=== PATIENT | female | born 1960 | race Hispanic/Latino ===

== ENCOUNTER 2016-12-16 01:26 | Emergency (ER) | payer OTHER, SELFPAY ==
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
[2016-12-16] MEDS ORDERED: HYDROmorphone HCL INJ 2 MG/ML VIAL IV ONE ×2 (02:31→08:25)
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
[2016-12-16] MEDS ORDERED: HYDROmorphone HCL INJ 2 MG/ML VIAL IV SCH (03:30)
[2016-12-16] MEDS ORDERED: fentaNYL PATCH 25 MCG/HR 1 EA PATCH TD ONE (03:32)
[2016-12-16] MEDS ORDERED: ONDANSETRON INJ 4 MG/2 ML VIAL IV ONE (04:00)
[2016-12-16] MEDS ORDERED: PROMETHAZINE HCL INJ 25 MG in SODIUM CHLORIDE 0.9% 50ML 50 ML IVPB ONE (05:20)
[2016-12-16] MEDS ORDERED: PROMETHAZINE HCL INJ 25 MG/ML VIAL ONE (05:22)
[2016-12-16] MEDS ORDERED: SODIUM CHLORIDE 0.9% 50ML 50 ML ONE (05:22)
[2016-12-16 10:18] VITALS: BP 120/97; TEMP 99.9; O2SAT 96
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
== END 2016-12-16 10:40 | disposition home or self-care (01) ==
LOC: ER 01:26
DX: S42.352A Displaced comminuted fracture of shaft of humerus, left arm, initial encounter for closed fracture (principal); S00.03XA Contusion of scalp, initial encounter; I10 Essential (primary) hypertension; Z79.82 Long term (current) use of aspirin; Z79.899 Other long term (current) drug therapy; Z87.891 Personal history of nicotine dependence; V47.6XXA Car passenger injured in collision with fixed or stationary object in traffic accident, initial encounter; Y92.410 Unspecified street and highway as the place of occurrence of the external cause
CPT/HCPCS: 70450; 71010; 72040; 72125; 72170; 73030; 73060; 80053; 80307; 80320; 81001; 85025; 85610; 85730; A4216; J1170; J2405; J2550

== ENCOUNTER → 2016-12-19 | Outpatient (CLI) | payer SELFPAY ==
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
== END | disposition home or self-care (01) ==
LOC: RAD 08:11
PROVIDERS: ATTEND Orthopaedic Surgery
DX: S42.202A Unspecified fracture of upper end of left humerus, initial encounter for closed fracture (principal)

== ENCOUNTER → 2016-12-27 | Outpatient (CLI) | payer SELFPAY ==
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
== END ==
LOC: RAD 08:30
PROVIDERS: ATTEND Orthopaedic Surgery
DX: S42.202A Unspecified fracture of upper end of left humerus, initial encounter for closed fracture (principal)

== ENCOUNTER → 2017-01-03 | Outpatient (CLI) | payer SELFPAY ==
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
== END | disposition home or self-care (01) ==
LOC: RAD 08:53
PROVIDERS: ATTEND Orthopaedic Surgery
DX: S42.202A Unspecified fracture of upper end of left humerus, initial encounter for closed fracture (principal)

== ENCOUNTER → 2017-01-10 | Outpatient (CLI) | payer SELFPAY ==
--- NOTE | 2017-01-10 12:36 | RAD ---
Two-view left humerus. Indication: FX OF LEFT HUMERUS Comparison: January 03, 2017 Impression: Comminuted segmental fracture proximal left humeral shaft redemonstrated with stable fracture malalignment. There is progressed heterotopic ossification about the fracture but without bridging callus formation. Electronically signed by: Eyal Concepcion MD 01/10/2017 12:36 PM UNIFORM ROOM ATTENDANT
== END | disposition home or self-care (01) ==
LOC: RAD 08:31
PROVIDERS: ATTEND Orthopaedic Surgery
DX: S42.202D Unspecified fracture of upper end of left humerus, subsequent encounter for fracture with routine healing (principal)

== ENCOUNTER → 2017-01-28 | Outpatient (CLI) | payer SELFPAY ==
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
== END | disposition home or self-care (01) ==
LOC: RAD 08:50
PROVIDERS: ATTEND Orthopaedic Surgery
DX: S42.202D Unspecified fracture of upper end of left humerus, subsequent encounter for fracture with routine healing (principal)

== ENCOUNTER → 2017-02-11 | Outpatient (CLI) | payer SELFPAY ==
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
== END | disposition home or self-care (01) ==
LOC: RAD 08:57
PROVIDERS: ATTEND Orthopaedic Surgery
DX: S42.302D Unspecified fracture of shaft of humerus, left arm, subsequent encounter for fracture with routine healing (principal)

== ENCOUNTER → 2017-03-04 | Outpatient (CLI) | payer OTHER ==
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
== END | disposition home or self-care (01) ==
LOC: RAD 09:02
PROVIDERS: ATTEND Orthopaedic Surgery
DX: S42.302D Unspecified fracture of shaft of humerus, left arm, subsequent encounter for fracture with routine healing (principal); X58.XXXA Exposure to other specified factors, initial encounter

== ENCOUNTER → 2017-03-25 | Outpatient (CLI) | payer OTHER ==
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
== END | disposition home or self-care (01) ==
LOC: RAD 08:58
PROVIDERS: ATTEND Orthopaedic Surgery
DX: S42.302D Unspecified fracture of shaft of humerus, left arm, subsequent encounter for fracture with routine healing (principal)

== ENCOUNTER → 2017-04-29 | Outpatient (CLI) | payer OTHER ==
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
== END | disposition home or self-care (01) ==
LOC: RAD 09:08
PROVIDERS: ATTEND Orthopaedic Surgery
DX: S42.302D Unspecified fracture of shaft of humerus, left arm, subsequent encounter for fracture with routine healing (principal)

== ENCOUNTER → 2019-11-17 | Outpatient (CLI) | payer BC | LOC: LAB.O 08:02 | PROVIDERS: ATTEND Internal Medicine Interventional Cardiology | DX: I25.10 Atherosclerotic heart disease of native coronary artery without angina pectoris (principal); I10 Essential (primary) hypertension; E78.5 Hyperlipidemia, unspecified ==

== ENCOUNTER → 2020-07-19 | Outpatient (CLI) | payer BC ==
--- NOTE | 2020-07-20 08:25 | RAD ---
EXAM DESCRIPTION: Abdomen 1 View CLINICAL HISTORY: 60 years Female, LEFT UPPER QUADRANT PAIN COMPARISON: May 08, 2015 Findings: One view(s)/radiograph(s) Large stool volume. Nonobstructive bowel gas pattern. Cholelithiasis. No other suspicious calcification. No acute osseous abnormality. IMPRESSION: Nonobstructive bowel gas pattern. Electronically signed by: Robert Thomas MD 07/20/2020 8:24 AM CDT
== END ==
LOC: LAB.O 11:25
PROVIDERS: ATTEND Nurse Practitioner Family
DX: R10.12 Left upper quadrant pain (principal); R53.83 Other fatigue; Z83.3 Family history of diabetes mellitus

== ENCOUNTER 2020-08-02 12:07 | Emergency (ER) | payer BC ==
[2020-08-02] MEDS ORDERED: HYDROcodone 7.5MG/APAP 325MG 1 EA TAB PO ONE (12:42)
[2020-08-02] MEDS ORDERED: KETOROLAC TROMETHAMINE INJ 30 MG/ML VIAL IM ONE (12:42)
[2020-08-02] MEDS ORDERED: PIPERACILLIN/TAZOBACTAM 3.375 GM in SODIUM CHLORIDE 0.9% 100ML 100 ML IVPB ONE (13:54)
[2020-08-02] MEDS ORDERED: cefTRIAXone SODIUM 1 GM in SODIUM CHL 0.9% 50ML MIN-BAG+ 50 ML IVPB ONE (13:58)
[2020-08-02] MEDS ORDERED: metroNIDAZOLE 500 MG TAB PO ONE (13:59)
[2020-08-02] MEDS ORDERED: CIPROFLOXACIN 500 MG TAB PO ONE (13:59)
--- NOTE | 2020-08-02 14:14 | ED.PDOC ---
History of Present Illness - General Chief Complaint: Abdominal Pain Stated Complaint: LEFT LOWER ABD PAIN X SEVERAL DAYS Time Seen by Provider: 08/02/20 12:37 Source: patient Exam Limitations: no limitations - History of Present Illness Initial Comments: The patient is a 60-year-old female presented emergency room secondary to around 2 weeks of left lower quadrant abdominal pain, worsening in the last 3 days. No definite fevers. No nausea vomiting or diarrhea. No blood in the stool. The patient had a outpatient CT scan performed 4 days ago which showed diverticulosis but no obvious diverticulitis. There was some in homogeneity of the uterus that was attributed to fibroids. No urinary symptoms or vaginal discharge. No skin changes. No obvious urinary changes. No syncope or near syncope. No chest pain. The patient tolerated breakfast this morning without any difficulty. She was able to ambulate in without difficulty. Timing/Duration: constant, getting worse Severity: moderate Improving Factors: nothing Worsening Factors: movement, other - Palpation Associated Symptoms: denies symptoms Allergies/Adverse Reactions: Allergies NO KNOWN ALLERGY Allergy (Verified 08/02/20 12:37) Home Medications: Ambulatory Orders Aspirin [Aspirin Adult Low Dose] 81 mg PO DAILY 05/08/15 Carvedilol 12.5 mg PO BID 05/08/15 Lisinopril 5 mg PO DAILY 05/08/15 Simvastatin 40 mg PO BEDTIME 05/08/15 Ondansetron [Zofran Odt] 4 mg PO Q4H PRN #10 tab 12/16/16 Tramadol HCl 50 mg PO Q6H #45 tab 12/16/16 Ciprofloxacin [Cipro] 500 mg PO BID #14 tab 08/02/20 Metronidazole 500 mg PO TID #21 tab 08/02/20 Tramadol HCl 50 mg PO Q8HR PRN #20 tab 08/02/20 Review of Systems - Review of Systems Constitutional: States: no symptoms reported EENTM: States: no symptoms reported Respiratory: States: no symptoms reported Cardiology: States: no symptoms reported Gastrointestinal/Abdominal: States: abdominal pain Genitourinary: States: no symptoms reported Musculoskeletal: States: no symptoms reported Skin: States: no symptoms reported Neurological: States: no symptoms reported Endocrine: States: no symptoms reported All other Systems: No Change from Baseline Past Medical History (General) - Patient Medical History Hx Seizures: No Hx Stroke: No Hx Dementia: No Hx Asthma: No Hx of COPD: No Hx Cardiac Disorders: Yes - STENT Hx Congestive Heart Failure: No Hx Pacemaker: No Hx Hypertension: Yes Hx Thyroid Disease: No Hx Diabetes: Yes Hx Gastroesophageal Reflux: No Hx Renal Disease: No Hx Cancer: No Hx of HIV: No Hx Hepatitis C: No Hx MRSA: No - Vaccination History Hx Tetanus, Diphtheria Vaccination: Yes Hx Influenza Vaccination: No Hx Pneumococcal Vaccination: No Immunizations Up to Date: No - Social History Hx Tobacco Use: Yes Hx Chewing Tobacco Use: No Hx Alcohol Use: No Hx Substance Use: No Hx Substance Use Treatment: No Hx Depression: No Feels Threatened In Home Enviroment: No Feels Threatened In a Relationship: No Hx Physical Abuse: No Hx Emotional Abuse: No Hx Suspected Abuse: No - Female History Patient is a Female of Child Bearing Age (10 -59 yrs old): No Patient : No Family Medical History - Family History Mother Family History: No Known Living Status: Hx Family Asthma: No Hx Family Congestive Heart Failure: No Hx Cardiac Disease: Yes Father Family History: Unknown Living Status: Hx Family Asthma: No Hx Family Congestive Heart Failure: No Hx Family Hypertension: No Hx Family Stroke: No Hx Cardiac Disease: Yes Physical Exam - Physical Exam General Appearance: Alert, No apparent distress Eye Exam: bilateral normal Ears, Nose, Throat: hearing grossly normal, normal pharynx Neck: full range of motion, supple Respiratory: lungs clear, normal breath sounds, no respiratory distress, no accessory muscle use Cardiovascular/Chest: normal peripheral pulses, regular rate, rhythm, no edema Peripheral Pulses: radial,right: 2+, radial,left: 2+ Gastrointestinal/Abdominal: soft, other - Left lower quadrant discomfort to palpation. No involuntary guarding. No definite peritoneal signs. No palpable mass. 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 The patient had a CT scan about 4 days ago which did not show any definitive acute pathology. She was noted to have significant sigmoid diverticulosis but no evidence of diverticulitis at that time on the scan. There was some changes in the uterus attributed to most likely fibroids. No definite renal pathology but questionable changes in the bladder consistent with cystitis. Patient was not started on any antibiotics at that point in time. The patient presented today secondary to increasing discomfort. She does have a urinary tract infection and is going to be placed on ciprofloxacin for that and is receiving a dose of Rocephin as well currently. It is possible the patient may have early diverticulitis superimposed on a urinary tract infection, for which she will also be placed on metronidazole for the next week. I am reluctant to repeat a CT scan on her at this point in time being that she just had one 4 days ago. Obviously if the patient is worsening over the next couple of days, then that will be required, along with other additional work-up. Additionally a pelvic ultrasound as an outpatient may be warranted to further characterize irregularities in the uterus consistent on the CT scan most likely with fibroids. The patient will be written for short prescription for tramadol for pain control. She does need to avoid getting constipated. ER warnings are given. Follow-up with primary care doctor in 5 to 7 days otherwise. hernan mccoy [phone] [facility] consulted - Results/Orders Results/Orders: Laboratory Results - last 24 hr 08/02/20 08/02/20 08/02/20 12:50 12:50 12:50 WBC 10.4 RBC 4.73 Hgb 14.8 Hct 42.4 MCV 89.6 MCH 31.2 H MCHC 34.8 RDW 13.1 Plt Count 273 MPV 8.7 Absolute Neuts (auto) 6.80 Absolute Lymphs (auto) 2.70 Absolute Monos (auto) 0.60 Absolute Eos (auto) 0.10 Absolute Basos (auto) 0.10 Neutrophils % 66.1 Lymphocytes % 26.1 Monocytes % 6.0 Eosinophils % 1.0 Basophils % 0.8 Sodium 137 Potassium 3.8 Chloride 102 Carbon Dioxide 25 Anion Gap 13.8 BUN 13 Creatinine 0.52 L BUN/Creatinine Ratio 25.0 H Random Glucose 142 H Serum Osmolality 276.4 Lactic Acid 1.5 Calcium 9.1 Total Bilirubin 0.6 AST 17 ALT 17 Alkaline Phosphatase 81 Serum Total Protein 7.5 Albumin 4.2 Globulin 3.3 Albumin/Globulin Ratio 1.3 Amylase 42 Lipase 21 L Urine Color Urine Appearance Urine pH Ur Specific [place] Urine Protein Urine Glucose (UA) Urine Ketones Urine Blood Urine Nitrite Urine Bilirubin Urine Urobilinogen Ur Leukocyte Esterase Urine RBC Urine WBC Ur Epithelial Cells Urine Bacteria Urine Mucus 08/02/20 12:58 WBC RBC Hgb Hct MCV MCH MCHC RDW Plt Count MPV Absolute Neuts (auto) Absolute Lymphs (auto) Absolute Monos (auto) Absolute Eos (auto) Absolute Basos (auto) Neutrophils % Lymphocytes % Monocytes % Eosinophils % Basophils % Sodium Potassium Chloride Carbon Dioxide Anion Gap BUN Creatinine BUN/Creatinine Ratio Random Glucose Serum Osmolality Lactic Acid Calcium Total Bilirubin AST ALT Alkaline Phosphatase Serum Total Protein Albumin Globulin Albumin/Globulin Ratio Amylase Lipase Urine Color Yellow Urine Appearance Sl cloudy Urine pH 5.0 Ur Specific [place] >= 1.030 Urine Protein 30 Urine Glucose (UA) 100 H Urine Ketones 15 H Urine Blood Negative Urine Nitrite Positive H Urine Bilirubin Small H Urine Urobilinogen 0.2 Ur Leukocyte Esterase Trace H Urine RBC 1-3 Urine WBC 5-10 H Ur Epithelial Cells 30-40 Urine Bacteria 4+ H Urine Mucus Small - EKG/XRAY/CT CT Ordered: No CT Interpretation Call Back: No Departure - Departure Clinical Impression: Cystitis Abdominal pain Qualifiers: Abdominal location: left lower quadrant Qualified Code(s): R10.32 - Left lower quadrant pain Disposition: Discharge to Home or Self Care Condition: Fair Departure Forms: ED Discharge - Pt. Copy, Patient Portal Self Enrollment Diet: full liquid diet Activity: increase activity as tolerated Referrals: MATTHEW NGUYEN NP [Primary Care Provider] - 1-5 Days Prescriptions: Tramadol HCl 50 mg PO Q8HR PRN #20 tab PRN Reason: Moderate Pain Ciprofloxacin [Cipro] 500 mg PO BID #14 tab Metronidazole 500 mg PO TID #21 tab Home Medications: Ambulatory Orders Aspirin [Aspirin Adult Low Dose] 81 mg PO DAILY 05/08/15 Carvedilol 12.5 mg PO BID 05/08/15 Lisinopril 5 mg PO DAILY 05/08/15 Simvastatin 40 mg PO BEDTIME 05/08/15 Ondansetron [Zofran Odt] 4 mg PO Q4H PRN #10 tab 12/16/16 Tramadol HCl 50 mg PO Q6H #45 tab 12/16/16 Ciprofloxacin [Cipro] 500 mg PO BID #14 tab 08/02/20 Metronidazole 500 mg PO TID #21 tab 08/02/20 Tramadol HCl 50 mg PO Q8HR PRN #20 tab 08/02/20 Additional Instructions: The patient is a 60-year-old female presented emergency room secondary to left lower quadrant pain of 1 to 2 weeks duration that has been increasing. The patient had a CT scan about 4 days ago which did not show any definitive acute pathology. She was noted to have significant sigmoid diverticulosis but no evidence of diverticulitis at that time on the scan. There was some changes in the uterus attributed to most likely fibroids. No definite renal pathology but questionable changes in the bladder consistent with cystitis. Patient was not started on any antibiotics at that point in time. The patient presented today secondary to increasing discomfort. She does have a urinary tract infection and is going to be placed on ciprofloxacin for that and is receiving a dose of Rocephin as well currently. It is possible the patient may have early diverticulitis superimposed on a urinary tract infection, for which she will also be placed on metronidazole for the next week. I am reluctant to repeat a CT scan on her at this point in time being that she just had one 4 days ago. Obviously if the patient is worsening over the next couple of days, then that will be required, along with other additional work-up. Additionally a pelvic ultrasound as an outpatient may be warranted to further characterize irregularities in the uterus consistent on the CT scan most likely with fibroids. The patient will be written for short prescription for tramadol for pain control. She does need to avoid getting constipated. ER warnings are given. Follow-up with primary care doctor in 5 to 7 days otherwise.
[2020-08-02 14:48] VITALS: BP 141/71; TEMP 97.4; O2SAT 95
== END 2020-08-02 14:39 | disposition home or self-care (01) ==
LOC: ER 12:07
DX: N30.90 Cystitis, unspecified without hematuria (principal); R10.32 Left lower quadrant pain; K57.30 Diverticulosis of large intestine without perforation or abscess without bleeding; D25.9 Leiomyoma of uterus, unspecified; I10 Essential (primary) hypertension; E11.9 Type 2 diabetes mellitus without complications; I51.9 Heart disease, unspecified; Z95.5 Presence of coronary angioplasty implant and graft; Z87.891 Personal history of nicotine dependence; Z79.82 Long term (current) use of aspirin; Z79.899 Other long term (current) drug therapy
CPT/HCPCS: 36415; 80053; 81001; 82150; 83605; 83690; 85025; 87040; 87086; J0696; J1885; J7050

== ENCOUNTER 2020-08-18 05:41 | Day surgery (SDC) | payer BC ==
--- NOTE | 2020-08-16 11:36 | RAD ---
EXAM DESCRIPTION: Chest,2 Views CLINICAL HISTORY: pre op COMPARISON: December 16, 2016 FINDINGS: Two-view chest x-ray shows cardiomediastinal silhouette and pulmonary vasculature to be within normal limits. The lungs are normally aerated and clear. Costophrenic angles are sharp. Mild disc degenerative changes of the spine are seen. IMPRESSION: No radiographic evidence of acute cardiopulmonary disease. Electronically signed by: Camilo Chou MD 08/16/2020 11:34 AM CDT
[2020-08-18] MEDS ORDERED: PROPOFOL 200 MG/20 ML VIAL IV ONE (07:00)
[2020-08-18] MEDS ORDERED: LIDOCAINE 1% 10 ML VIAL INJ ONE (07:00)
[2020-08-18] MEDS ORDERED: MAGNESIUM SULFATE INJ 1 GM/2 ML VIAL ONE (07:00)
[2020-08-18] MEDS ORDERED: DEXAMETHASONE INJ 10 MG/ML VIAL ONE (07:00)
[2020-08-18] MEDS ORDERED: KETOROLAC TROMETHAMINE INJ 30 MG/ML VIAL ONE (07:00)
[2020-08-18] MEDS ORDERED: LACTATED RINGERS 1,000 ML ONE (07:19)
[2020-08-18] MEDS ORDERED: BUPIVACAINE 0.5% W/EPI 30 ML VIAL INJ ONE ×2 (07:38→10:45)
[2020-08-18] MEDS ORDERED: ROCURONIUM BROMIDE 10 MG/ML VIAL ONE (13:51)
[2020-08-18] MEDS ORDERED: SUGAMMADEX SODIUM 200 MG/2 ML VIAL IV ONE (13:51)
[2020-08-18] MEDS ORDERED: fentaNYL CITRATE INJ 50 MCG/ML 2 ML AMP ONE (13:51)
[2020-08-18] MEDS ORDERED: FAMOTIDINE INJ 10 MG/ML VIAL IV ONE (13:52)
[2020-08-18] MEDS ORDERED: MIDAZOLAM INJ 2 MG/2 ML VIAL ONE (14:01)
[2020-08-18] MEDS ORDERED: hydrALAZINE HCl 20 MG/ML VIAL ONE (14:39)
[2020-08-18] MEDS ORDERED: ONDANSETRON INJ 4 MG/2 ML VIAL ONE (15:06)
[2020-08-18] MEDS ORDERED: ONDANSETRON INJ 4 MG/2 ML VIAL IV ONE (15:08)
--- NOTE | 2020-08-18 15:19 | OP ---
DATE OF PROCEDURE: 08/18/20 PREOPERATIVE DIAGNOSIS: 1. Symptomatic cholelithiasis. POSTOPERATIVE DIAGNOSIS: 1. Symptomatic cholelithiasis. PROCEDURE: 1. Laparoscopic cholecystectomy. SURGEON: Jonathon Nolen MD. ANESTHESIA: General and local. FINDINGS: Anatomy is clearly visualized and clipped. There was an at least 3 cm stone in the gallbladder. No other abnormalities in the upper abdomen were identified. COMPLICATIONS: None. ESTIMATED BLOOD LOSS: Minimal. SPECIMEN: Gallbladder. PLAN: Discharge. INDICATION: This is a 60-year-old woman with chronic now of epigastric pain, sometimes very constant, often intermittent. The only positive finding is a gallstone. There is some relation to food. Although it is not classic, it is very highly suspicious for symptomatic cholelithiasis and laparoscopic cholecystectomy is recommended. The patient understands and agreed. Informed consent was obtained. PROCEDURE: The patient was brought to the Operative Suite in supine position. General anesthesia was induced. The patient was prepped and draped in sterile fashion. Marcaine 0.5% with epinephrine was used at all incision sites. While maintaining upward traction, a fito was made near the base of the umbilicus. Veress needle was introduced. There was free flow of fluid into the peritoneal cavity which was insufflated to an appropriate level with CO2 gas. The 5 mm trocar was placed followed by the camera. There was no evidence of bleeding or bowel injury. The patient was positioned and subxiphoid and lateral ports were placed under direct visualization without difficulty. The gallbladder fundus was easily identified. It was grasped and retracted superiorly and laterally. The infundibulum was grasped. The infundibular structures were dissected free. The duct and artery were clearly visualized through the triangle of [place]. The duct was triply ligated. Two branches of small vessels were also triply ligated. The gallbladder was then dissected off the fossa in total and removed in the EndoCatch bag. The fossa was examined. It remained hemostatic. The clips were intact. There was no bleeding or bile leakage. The area was irrigated until all aspirate was clear. Everything still looked good. The subxiphoid fascia was then closed with 0 Vicryl using the suture passer. It was airtight and non-bleeding. The remaining trocars were removed. There was no bleeding from the trocar sites. The wounds were irrigated and closed with Monocryl. Dressings were applied. The patient tolerated the procedure, was awakened and taken to Recovery in stable condition to be discharged. #[id number] cc: Naomie Taveras, MALGORZATA PALMER
[2020-08-18] MEDS ORDERED: HYDROmorphone HCL INJ 2 MG/ML VIAL ONE (15:26)
[2020-08-18] MEDS ORDERED: HYDROmorphone HCL INJ 2 MG/ML VIAL IV ONE ×2 (15:27→15:37)
[2020-08-18 16:57] VITALS: BP 152/64; TEMP 97; O2SAT 96
== END 2020-08-18 16:50 | disposition home or self-care (01) ==
LOC: AMB 05:41
PROVIDERS: ATTEND Surgery
DX: K80.10 Calculus of gallbladder with chronic cholecystitis without obstruction (principal); E11.9 Type 2 diabetes mellitus without complications; I10 Essential (primary) hypertension; E78.00 Pure hypercholesterolemia, unspecified; Z95.5 Presence of coronary angioplasty implant and graft; Z79.82 Long term (current) use of aspirin; Z79.84 Long term (current) use of oral hypoglycemic drugs; Z79.899 Other long term (current) drug therapy
CPT/HCPCS: 00790; 36416; 47562; 71046; 82948; 93005; J0360; J1170; J2250; J2405; J3010; J7120